=== PATIENT | male | born 1955 | race Caucasian/White ===

== ENCOUNTER 2023-08-31 10:59 | Emergency (ER) | payer MEDICARE, OTHER, SELFPAY ==
[2023-08-31 11:06] VITALS: BP 146/90
[2023-08-31 11:19] VITALS: BMI 30.2
--- NOTE | 2023-08-31 11:25 | EDRN ---
Wet Saline dressing applied to wound on R elbow at this time.
--- NOTE | 2023-08-31 11:30 | EDRN ---
Ice to R elbow.
--- NOTE | 2023-08-31 12:47 | ED.MUSCINJ ---
HPI-Injury
General
Chief Complaint: Fall
Source: patient
Exam Limitations: none
Time Seen by Provider: 08/31/23 11:21
Nursing documentation reviewed up to this point in time: agreed with
Travel History
Have you had any contact with someone who has COVID-19?: No
Do you have any symptoms of coronavirus? Fever > 100 degrees, chills, cough, shortness of breath, sore throat, loss of taste or smell, muscle aches, or headache?: No
History of Present Illness-Injury
Initial Injury comments:
68 yo male, at the park with his dog, attempting to put dog into car, slipped on ice, fell, lacerating right elbow. Denies hitting head or any other injury. Unsure of las dT.
Past History
Past History
ED Past Medical History: HTN
Social History
Tobacco: Non-smoker
Personal:
Living: with family
Employment: Employed
Review of Systems
Review of Systems
Allergies reviewed?: Yes
All Other Systems: ROS reviewed and negative except as documented in HPI and ROS
Musculoskeletal: Reports other (no significant pain right elbow)
Skin: Reports other (cut right elbow)
Neurological: Denies weakness or numbness
Skin Exam
Laceration
Right Elbow:
Length in cm: 2
Orientation: horizontal
Type of Laceration: simple
Any active bleeding?: low grade venous oozing
Distal skin color and temperature: normal-warm & good color
Normal distal neurovascular exam: Yes
Range of motion: full
Phy Exam
General Physical Exam
General Presentation: well appearing and no apparent distress
General age: appears stated age
General Skin: warm and dry
Neurological Exam
Neurological Exam: alert and no motor deficits
Musculoskeletal Exam
Musculoskeletal Exam: full ROM (no bony tenderness of RUE)
Skin Exam
Skin Exam: normal color and warm/dry
Psychiatric Exam
Psychiatric Exam: normal mood/affect
Injury Course
Orders/Labs/Results
Orders:
Orders
08/31/23 12:47
Tetanus/Diphth/Acelpertussis [Adacel] 0.5 ml IM .ONCE ONE
Procedures
Laceration Closure
Right Elbow:
Status of Wound: clean
Size of Wound in cm: 2
Description of Wound Edges: sharp
Preparation: cleaned with saline
Anesthesia: 1% Lidocaine with epi
Revision/Debridement: routine- no revision
Wound exploration: explored to base- no FB
Type of Closure: single layer closure
Skin Closure Material: 3-0 nylon
Number of sutures: 4
MDM/Problems Addressed
MDM/Problems Addressed:
68 yo male, at the park with his dog, attempting to put dog into car, slipped on ice, fell, lacerating right elbow. Denies hitting head or any other injury. Unsure of las dT
Wound edges well approximated with sutures, ATB ointment and bandaid applied
dT updated
*Critical Care Note
Total Time (30-74mins, 75-104mins- exclusive of procedures): Not Applicable
ED Attending Note
-
Portions of this chart may have been created with voice recognition software.� Occasional wrong word or��sound alike� substitutions may have occurred due to the inherent limitations of voice recognition software.
Discharge Plan
Departure
Patient Disposition: Home (Routine Discharge)
Date of Disposition: 08/31/23
Time of Disposition: 12:47
Patient with high blood pressure during this ER visit?: Yes
Condition: Good
Discharge Problem:
Elbow laceration, Fall due to ice or snow
Instructions: Laceration Repair With Stitches (DC)
Prescriptions:
No Action
olmesartan 20 MG tablet
1 PO DAILY
hydrocodone-acetaminophen [Vicodin] 1 EACH tablet
1 ea PO Q6HPRN PRN (Reason: pain) Qty: 14 0RF
Referrals:
Alina Reyes MD [Family Provider] - Call in 1-3 days for appt
Activity Restrictions/Additional Instructions:
As we discussed, have the sutures taken out in 8 to 10 days.
Interventions
Interventions:
*Risk Screen - Suicide Last Done: 08/31/23 11:24
*General Assessment Last Done: 08/31/23 11:06
*Neglect/Abuse Screening Last Done: 08/31/23 11:24
ED- Fall Risk Assessment Last Done: 08/31/23 13:10
*ED COVID-19 Vaccine History Last Done: 08/31/23 11:06
*Nursing Disposition Last Done: 08/31/23 13:10
ED-Musculoskeletal Assessment Last Done: 08/31/23 11:21
ED- Neurological Assessment Last Done: 08/31/23 11:21
ED-Skin Assessment Last Done: 08/31/23 11:21
Discharge Date and Time
Discharge Date/Time: 08/31/23 13:10
--- NOTE | 2023-08-31 13:05 | EDRN ---
Dressing applied to R elbow sutured wound of double antibiotic ointment, adhesive adaptic and tamanna.
== END 2023-08-31 13:10 | disposition home or self-care (01) ==
LOC: EMR 10:59
PROVIDERS: EMERGENCY PHYSICIAN Emergency Medicine; FAMILY PHYSICIAN Family Medicine
DX: S51.011A Laceration without foreign body of right elbow, initial encounter (principal); W00.0XXA Fall on same level due to ice and snow, initial encounter; Y92.830 Public park as the place of occurrence of the external cause
CPT/HCPCS: 99282; 12001

== ENCOUNTER → 2024-03-13 06:41 | Outpatient (REF) | payer MEDICARE, OTHER, SELFPAY | LOC: PAVMRI 06:41 | PROVIDERS: ATTENDING PHYSICIAN Student in an Organized Health Care Education/Training Program | DX: M25.512 Pain in left shoulder (principal) | CPT/HCPCS: 73221 ==

== ENCOUNTER → 2024-07-17 15:26 | Outpatient (REF) | payer MEDICARE, OTHER, SELFPAY | LOC: RCS 15:26 | PROVIDERS: ATTENDING PHYSICIAN Orthopaedic Surgery Hand Surgery | DX: Z01.818 Encounter for other preprocedural examination (principal) | CPT/HCPCS: 93005 ==

== ENCOUNTER → 2025-01-22 08:50 | Outpatient (REF) | payer MEDICARE, OTHER, SELFPAY | LOC: HWRCS 08:50 | PROVIDERS: ATTENDING PHYSICIAN Student in an Organized Health Care Education/Training Program | DX: R01.1 Cardiac murmur, unspecified (principal) | CPT/HCPCS: 93306 ==

== ENCOUNTER → 2025-03-13 08:16 | Outpatient (REF) | payer MEDICARE, OTHER, SELFPAY | LOC: MRI 3T 08:16 | PROVIDERS: ATTENDING PHYSICIAN Physical Medicine & Rehabilitation; FAMILY PHYSICIAN Student in an Organized Health Care Education/Training Program | DX: M54.16 Radiculopathy, lumbar region (principal) | CPT/HCPCS: 72148 ==